=== PATIENT | male | born 1995 | race Caucasian/White ===

== ENCOUNTER 2018-07-13 12:17 | Emergency (ER) | payer BC ==
[~2018-07-13] VITALS: Ht 165.1 cm; Wt 128.9 kg
[2018-07-13] MEDS ORDERED: VANCOCIN HCL250 MG PO (14:47)
[2018-07-13] MEDS ORDERED: FLAGYL500 MG PO (14:47)
== END 2018-07-13 15:29 | disposition home or self-care (01) ==
LOC: ED 12:17
DX: R19.7 Diarrhea, unspecified (principal); Z88.0 Allergy status to penicillin; Z88.2 Allergy status to sulfonamides
CPT/HCPCS: 80053; 81001; 83690; 85025; 87493; 96374; 96375; 99284-25; J2405; J7030